=== PATIENT | male | born 1965 | race Caucasian/White ===

== ENCOUNTER → 2017-11-10 15:54 | Outpatient (CLI) | payer OTHER, SELFPAY ==
[2017-11-10 18:19] LABS: PSA,Total - Annual Screen 0.15 ng/mL (0.00-4.00); PSA,Total- Diagnostic 0.15 ng/mL (0.0-4.0)
== END ==
PROVIDERS: Visit Provider Urology
DX: Z12.5 Encounter for screening for malignant neoplasm of prostate (principal)
CPT/HCPCS: 36415; 84153; G0103